=== PATIENT | female | born 1980 | race Caucasian/White ===

== ENCOUNTER → 2024-01-13 13:08 | Outpatient (REF) | payer BC, SELFPAY | LOC: WDC 13:08 | PROVIDERS: ATTENDING PHYSICIAN Advanced Practice Midwife; FAMILY PHYSICIAN Physician Assistant | DX: Z12.31 Encounter for screening mammogram for malignant neoplasm of breast (principal) | CPT/HCPCS: 77063; 77067 ==

== ENCOUNTER → 2025-02-05 14:23 | Outpatient (REF) | payer OTHER, SELFPAY | LOC: WDC 14:23 | PROVIDERS: ATTENDING PHYSICIAN Advanced Practice Midwife; FAMILY PHYSICIAN Physician Assistant | DX: Z12.31 Encounter for screening mammogram for malignant neoplasm of breast (principal) | CPT/HCPCS: 77063; 77067 ==